=== PATIENT | male | born 1985 ===

== ENCOUNTER 2022-02-21 17:02 | Emergency (ER) | payer SELFPAY ==
[~2022-02-21] VITALS: Ht 167.6 cm; Wt 63.2 kg
[2022-02-21 17:30] VITALS: BP 121/101
== END 2022-02-22 02:41 | disposition left against medical advice (07) ==
LOC: ER 17:03
DX: R10.9 Unspecified abdominal pain (principal); R11.10 Vomiting, unspecified; Z53.21 Procedure and treatment not carried out due to patient leaving prior to being seen by health care provider